=== PATIENT | male | born 1990 | race Caucasian/White ===

== ENCOUNTER 2025-03-17 15:02 | Emergency (ER) | payer BC, SELFPAY ==
[2025-03-17 15:03] VITALS: BP 137/92; PULSE 63; RESP 18; TEMP 37; O2SAT 100; BMI 21.6
--- NOTE | 2025-03-17 15:03 | ECG_ITS ---
APPROVED REPORT Exam: Resting ECG HR:68 bpm ECG Measurements Heart Rate 68 AXES NV 130 P 54 QRSd 93 QRS 79 QT 347 T 71 QTc 365 Conclusion Normal sinus rhythm Normal axis Normal intervals No STEMI Electronically signed by : Mehrdad Loo, 03/18/2025 01:45:15
[2025-03-17 15:10] VITALS: PULSE 63
--- NOTE | 2025-03-17 15:11 | XR_ITS ---
FINAL REPORT CLINICAL HISTORY: Chest pain, shortness of breath COMPARISON: None FINDINGS: CHEST 1 VIEW The heart size is normal. The mediastinum is normal. There is no focal infiltrate or edema. There are no pleural effusions. There is no pneumothorax. There is no osseous abnormality. There is a calcified granuloma in the right upper lobe. IMPRESSION: Calcified granuloma right upper lobe without acute cardiopulmonary process Reviewed, Interpreted and Dictated by Zhou Alatorre MD Transcribed by Fatoumata Sellers Authenticated and [facility]
[2025-03-17] MEDS: ACETAMINOPHEN 500MG TAB 1000 MG PO (15:20)
[2025-03-17 15:21] LABS: Hematocrit 40.0 % (42.0-52.0); Hemoglobin 13.0 g/dL (14.1-18.0); Immature Granulocytes % 0.4 %; Mean Corpuscular HGB Conc 32.5 g/dL (31.8-35.4); Mean Corpuscular Hemoglobin 28.8 pg (27.0-31.2); Mean Corpuscular Volume 88.5 fl (80-94); Nucleated Red Blood Cells % 0 %; Platelet Count 298 K/mm3 (142-424); Red Blood Count 4.52 M/mm3 (4.60-6.20); Red Cell Distribution Width-SD 41.1 fL; White Blood Count 8.5 K/mm3 (4.8-10.8)
[2025-03-17 15:27] LABS: Activated Partial Thrombo Time 26.7 seconds (22.8-30.6); Albumin Level 4.5 g/dl (3.5-5.0); Chloride 101 mmol/L (98-107); INR 0.98 (0.9-1.1); Prothrombin Time 10.9 seconds (10.1-12.5); Sodium 144 mmol/L (136-145)
[2025-03-17 15:28] LABS: Potassium 4.2 mmoL/L (3.5-5.1)
[2025-03-17 15:30] VITALS: BP 118/82; PULSE 58; RESP 10; O2SAT 97
[2025-03-17 15:30] LABS: Alanine Aminotransferase 17 U/L (12-78); Albumin/Globulin Ratio 1.6 (1.1-1.8); Alkaline Phosphatase 81 U/L (38-126); Anion Gap 16.2 mEq/L (5-15); Aspartate Amino Transferase 37 U/L (17-59); Bilirubin,Total 0.2 mg/dl (0.2-1.3); Blood Urea Nitrogen 11 mg/dl (9-20); Carbon Dioxide 31 mmol/L (22.0-30.0); Creatinine Clearance Estimated 93 mL/min (50-200); Creatinine,Serum 1.00 mg/dl (0.66-1.25); Estimated Glomerular Filt Rate 86 ml/min (>60); GFR (African American) 104 ML/MIN (>60); Globulin 2.9 g/dL (1.3-3.2); Total Protein,Serum 7.4 g/dl (6.3-8.2)
[2025-03-17 15:31] LABS: Calcium 9.4 mg/dl (8.4-10.2); Glucose 78 mg/dl (74-100)
--- NOTE | 2025-03-17 15:48 | ED_ITS ---
<Statement entered by Mehrdad Loo DO - 03/17/25 17:58> I was consulted by the MARI, and we discussed the complexity of problems being addressed. I approved the treatment and management plan for this patient's care in the emergency department, thus performing a substantive portion of the medical decision making. Discussed this case directly with MARI. Well score is low and PERC score 0. He did not state workup with D-dimer or CT PE study. Workup is overall reassuring and patient's pain seems highly consistent with musculoskeletal pain. He was discharged home on muscle laxer's. Mehrdad Loo DO Discharge Plan Disposition Patient Disposition: Home, Self-Care Prescriptions Prescriptions: New methocarbamol 500 mg tablet 500 mg PO BID Qty: 10 0RF Referrals Follow up/Referrals: Provider,Referral, MD [Primary Care Provider, Medical] - See instructions Activity Restrictions/Add. Instructions Additional Instructions/Restrictions: Today you were evaluated in the emergency department for chest pain. Your cardiac enzyme is negative. All of your other labs look well. Your chest x-ray does not show any acute findings. Please use the muscle relaxer, increase your fluid intake, rest and follow-up with your PCP. Please return to the ED for any worsening of condition peer Clinical Impressions Clinical Impression: Chest pain Stand Alone Forms Stand Alone Forms: Work/School Release Instructions Patient Instructions: DI for Chest Pain Print Language Print Language: Yi Discharge ED Provider: Mehrdad Loo <Karissa Franklin APRN - Last Filed: 03/17/25 16:18> General Chief Complaint: Chest Pain Stated Complaint: CP Time Seen by Provider: 03/17/25 15:04 Mode of Arrival: Ambulatory Source of Information: Patient Description of Symptoms (Recalled from ER Triage Doc. 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 pt states it is right sided in nature, tender and is worse with movement. Denies lifting anything heavy/strenous History of Present Illness HPI narrative: patient is a 34-year-old male with no significant PMHx who presents to the ED for complaints of right sided chest pain. Patient states the chest pain has been present for 3 days, it is worse when he is walking. He denies any history of chest pain, reports he does not have any family history of early or sudden cardiac . Denies any obvious injury or trauma to the area. 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 Related Data Previous Rx's ?Medication ?Instructions ?Recorded methocarbamol 500 mg tablet 500 mg PO BID #10 tabs Allergies Allergy/AdvReac Type Severity Reaction Status Date / Time No Known Allergies Allergy Verified 03/17/25 15:11 PFSH <Karissa Franklin APRN - Last Filed: 03/17/25 16:18> [facility] Disclaimer: The information contained in this section may have been updated after the patient was seen, as this information can be updated by other users. Social History (Updated 03/17/25 @ 16:18 by Karissa Franklin APRN) Smoking Status: Current every day smoker alcohol intake: never current occupational status: employed Travel in the last 8 weeks?: None Have you lived/traveled outside US in past 30 days?: No Contact w/someone who lives/traveled outside US past 30 days?: No Exposure to someone with infectious disease in past 14 days?: No Do you have a fever (greater than 100.4 F or 38 C)?: No Have you tested positive for COVID-19?: No Exposed to someone with COVID-19 in past 14 days?: No Do you have a sore throat?: No Do you have a cough?: No Do you have any weakness?: No Do you have any diarrhea?: No Are you experiencing any unusual bleeding?: No Do you have any muscle aches/pain?: Yes Do you have any abdominal pain?: No Are you experiencing loss of taste or smell?: No <Karissa Franklin APRN - Last Filed: 03/17/25 16:18> ROS Obtained: Yes Systems reviewed as appropriate & no additional complaints except as documented Physical Exam <Karissa Franklin APRN - Last Filed: 03/17/25 16:18> General General appearance: alert Head Head exam: atraumatic Eye Eye exam: Present PERRL Respiratory Respiratory exam: Present normal lung sounds bilaterally Cardiovascular Cardiovascular exam: Present regular rate and other (mild R sided chest wall tenderness upon palpation) Abdominal Exam Abdominal exam: Present soft; Absent tenderness Extremities Exam Extremities exam: Present full ROM Back Exam Back exam: Present full ROM Neurological Exam Neurological exam: Present alert and oriented X3 Skin Skin exam: Present warm and dry HEART Score <MARYELLEN Reardon Last Filed: 03/17/25 16:18> HEART Score HEART Score assessment performed?: Yes History (anamnesis): Slightly suspicious ECG: Normal Age: <45 years Risk factors: No known risk factors Troponin: </= normal limit HEART Score: 0 <Mehrdad Loo DO - Last Filed: 03/17/25 17:57> HEART Score HEART Score: 0 Critical Care <Karissa Franklin APRN - Last Filed: 03/17/25 16:18> Critical Care Time Critical Care Time: No Medical Decision Making <Karissa Franklin APRN - Last Filed: 03/17/25 16:18> [place] Inquiry Pt receiving controlled substance: No Vital Signs Vital Signs: 03/17/25 15:03 03/17/25 15:10 03/17/25 15:30 Temperature 98.6 F Temperature Source Oral Pulse Rate 63 58 L Pulse Rate [Right] 63 Respiratory Rate 18 10 L Blood Pressure 118/82 Blood Pressure [Right Arm] 137/92 H Blood Pressure Mean [Right Arm] 107 Blood Pressure Source [Right Arm] Automatic Cuff Blood Pressure Position [Right Arm] Sitting 02 Sat by Pulse Oximetry 100 97 Oxygen Delivery Method Room Air Room Air 03/17/25 16:00 03/17/25 16:29 Temperature 98.6 F Temperature Source Pulse Rate 55 L 59 L Pulse Rate [Right] Respiratory Rate 10 L 12 Blood Pressure 114/72 114/72 Blood Pressure [Right Arm] Blood Pressure Mean [Right Arm] Blood Pressure Source [Right Arm] Blood Pressure Position [Right Arm] 02 Sat by Pulse Oximetry 98 Oxygen Delivery Method Lab Data Labs: Lab Results 03/17/25 15:08: WBC 8.5, RBC 4.52 L, Hgb 13.0 L, Hct 40.0 L, MCV 88.5, MCH 28.8, MCHC 32.5, RDW 12.6, Plt Count 298, MPV 10.5 H, Neut % (Auto) 77.8, Lymph % (Auto) 14.3, Tompkins % (Auto) 6.5, Eos % (Auto) 0.5, Baso % (Auto) 0.5, Neut # (Auto) 6.6, Lymph # (Auto) 1.2, Tompkins # (Auto) 0.6, Eos # (Auto) 0.0, Baso # (Auto) 0.0, PT 10.9, INR 0.98, APTT 26.7, Sodium 144, Potassium 4.2, Chloride 101, Carbon Dioxide 31 H, Anion Gap 16.2 H, BUN 11, Creatinine 1.00, Estimated Creat Clear 93, Estimated GFR 86, Est GFR ( Amer) 104, Glucose 78, Calcium 9.4, Total Bilirubin 0.2, AST 37, ALT 17, Alkaline Phosphatase 81, Troponin I < 0.01, Total Protein 7.4, Albumin 4.5, Globulin 2.9, Albumin/Globulin Ratio 1.6 03/17/25 15:51: Urine Color Yellow, Urine Appearance Clear, Urine pH 6.0, Ur Specific Montezuma 1.025, Urine Protein Negative, Urine Glucose (UA) Negative, Urine Ketones Negative, Urine Blood Negative, Urine Nitrate Negative, Urine Bilirubin Negative, Urine Urobilinogen 0.2, Ur Leukocyte Esterase Negative, Urine RBC Occasional, Urine WBC Occasional, Ur Squamous Epith Cells 3-5, Urine Bacteria 2+, Urine Opiates Screen Negative, Urine Methadone Screen Negative, Ur Barbituates Screen Negative, Ur Phencyclidine Scrn Negative, Ur Amphetamines Screen Negative, U Benzodiazepines Scrn Negative, Urine Cocaine Screen Negative, U Marijuana (THC) Screen Positive H 03/17/25 15:08 03/17/25 15:08 Response Orders (Tests/Meds): ED MEDICATIONS Discontinued Medications Generic Name Dose Route Start Last Admin Trade Name Freq PRN Reason Stop Dose Admin Acetaminophen 1,000 mg 03/17/25 15:12 03/17/25 15:20 Acetaminophen 500mg Tab PO 03/17/25 15:13 1,000 mg ONCE ONE Administration ORDERS Category Date Time Status CXR --portable [XR chest portable] Stat Exams 03/17/25 15:11 Completed CBC w/Auto Diff [Complete Blood Count Auto Diff] Stat Lab 03/17/25 15:08 Completed CMP [Comprehensive Metabolic Panel] Stat Lab 03/17/25 15:08 Completed PT/PTT Stat Lab 03/17/25 15:08 Completed Trop I [Troponin I] Stat Lab 03/17/25 15:08 Completed UDS [Drug Screen,Urine] Stat Lab 03/17/25 15:51 Completed Urinalysis and Microscopic Stat Lab 03/17/25 15:51 Completed Urine Culture Stat Micro 03/17/25 15:51 Received [facility] Narrative Medical Decision Narrative: In summary, patient is a 34-year-old male with no significant PMHx who presents to the ED for complaints of right sided chest pain. Patient states the chest pain has been present for 3 days, it is worse when he is walking. He denies any history of chest pain, reports he does not have any family history of early or sudden cardiac . Denies any obvious injury or trauma to the area. 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 Denies any history of pulmonary embolism. Upon initial evaluation he is alert, oriented and cooperative. He is hemodynamically stable. He has mild right chest wall tenderness upon palpation. Denies fever, chills, headache, visual disturbances, neck pain, shortness of breath, abdominal pain, nausea, vomiting, dysuria. Differential diagnoses include ACS, pulmonary embolism, dissection, pneumonia, pneumothorax, infectious process, among others. Shared decision making used, advised patient we will obtain labs, EKG and chest x-ray for further evaluation. He states he does not want any pain medication due to previous history of abuse, we decided that we will administer acetaminophen and reevaluate. CBC unremarkable for any leukocytosis, stable H&H. PT, INR, APTT normal. CMP unremarkable for any actionable abnormalities. First troponin < 0.01. Attending reviewed chest x-ray, reports no acute findings. Upon reassessment, patient states that his pain has improved. He states that he may have injured himself at work at [employer] because he remembers telling his work partner this past Thursday that his chest was hurting. I discussed with patient he may benefit from a mild muscle relaxer, he is agreeable to try this. He states he does have a PCP that he can follow-up with. Advised him to rest, increase fluid intake, he may also take acetaminophen as needed. We discussed return precautions to the ED and patient verbalized understanding <Mehrdad Loo DO - Last Filed: 03/17/25 17:57> Medical Records Medical records reviewed: Yes I reviewed the patient's medical records. Vital Signs Vital Signs: 03/17/25 15:03 03/17/25 15:10 03/17/25 15:30 Temperature 98.6 F Temperature Source Oral Pulse Rate 63 58 L Pulse Rate [Right] 63 Respiratory Rate 18 10 L Blood Pressure 118/82 Blood Pressure [Right Arm] 137/92 H Blood Pressure Mean [Right Arm] 107 Blood Pressure Source [Right Arm] Automatic Cuff Blood Pressure Position [Right Arm] Sitting 02 Sat by Pulse Oximetry 100 97 Oxygen Delivery Method Room Air Room Air 03/17/25 16:00 03/17/25 16:29 Temperature 98.6 F Temperature Source Pulse Rate 55 L 59 L Pulse Rate [Right] Respiratory Rate 10 L 12 Blood Pressure 114/72 114/72 Blood Pressure [Right Arm] Blood Pressure Mean [Right Arm] Blood Pressure Source [Right Arm] Blood Pressure Position [Right Arm] 02 Sat by Pulse Oximetry 98 Oxygen Delivery Method Lab Data Labs: Lab Results 03/17/25 15:08: WBC 8.5, RBC 4.52 L, Hgb 13.0 L, Hct 40.0 L, MCV 88.5, MCH 28.8, MCHC 32.5, RDW 12.6, Plt Count 298, MPV 10.5 H, Neut % (Auto) 77.8, Lymph % (Auto) 14.3, Tompkins % (Auto) 6.5, Eos % (Auto) 0.5, Baso % (Auto) 0.5, Neut # (Auto) 6.6, Lymph # (Auto) 1.2, Tompkins # (Auto) 0.6, Eos # (Auto) 0.0, Baso # (Auto) 0.0, PT 10.9, INR 0.98, APTT 26.7, Sodium 144, Potassium 4.2, Chloride 101, Carbon Dioxide 31 H, Anion Gap 16.2 H, BUN 11, Creatinine 1.00, Estimated Creat Clear 93, Estimated GFR 86, Est GFR ( Amer) 104, Glucose 78, Calcium 9.4, Total Bilirubin 0.2, AST 37, ALT 17, Alkaline Phosphatase 81, Troponin I < 0.01, Total Protein 7.4, Albumin 4.5, Globulin 2.9, Albumin/Globulin Ratio 1.6 03/17/25 15:51: Urine Color Yellow, Urine Appearance Clear, Urine pH 6.0, Ur Specific [place] 1.025, Urine Protein Negative, Urine Glucose (UA) Negative, Urine Ketones Negative, Urine Blood Negative, Urine Nitrate Negative, Urine Bilirubin Negative, Urine Urobilinogen 0.2, Ur Leukocyte Esterase Negative, Urine RBC Occasional, Urine WBC Occasional, Ur Squamous Epith Cells 3-5, Urine Bacteria 2+, Urine Opiates Screen Negative, Urine Methadone Screen Negative, Ur Barbituates Screen Negative, Ur Phencyclidine Scrn Negative, Ur Amphetamines Screen Negative, U Benzodiazepines Scrn Negative, Urine Cocaine Screen Negative, U Marijuana (THC) Screen Positive H Response Orders (Tests/Meds): ED MEDICATIONS Discontinued Medications Generic Name Dose Route Start Last Admin Trade Name Deanna PRN Reason Stop Dose Admin Acetaminophen 1,000 mg 03/17/25 15:12 03/17/25 15:20 Acetaminophen 500mg Tab PO 03/17/25 15:13 1,000 mg ONCE ONE Administration ORDERS Category Date Time Status CXR --portable [XR chest portable] Stat Exams 03/17/25 15:11 Completed CBC w/Auto Diff [Complete Blood Count Auto Diff] Stat Lab 03/17/25 15:08 Completed CMP [Comprehensive Metabolic Panel] Stat Lab 03/17/25 15:08 Completed PT/PTT Stat Lab 03/17/25 15:08 Completed Trop I [Troponin I] Stat Lab 03/17/25 15:08 Completed UDS [Drug Screen,Urine] Stat Lab 03/17/25 15:51 Completed Urinalysis and Microscopic Stat Lab 03/17/25 15:51 Completed Urine Culture Stat Micro 03/17/25 15:51 Received ECG Data Tracing #1: Attestation: I reviewed this ECG and interpreted as documented below: ECG Narrative: EKG personally turbid by me demonstrates normal sinus rhythm with a rate of 68 bpm, normal axis, no MD prolongation, narrow QRS, no QTc punctation. No ST elevation or depression. No overt signs of ischemia or arrhythmia
[2025-03-17 15:53] LABS: Troponin I < 0.01 ng/ml (0.00-0.034)
--- OUTSIDE RECORDS SUMMARY | 2025-03-17 15:55 | XMS_ITS | Referral Summary ---
Author Organization [employer] ([place], [place], [place], [place], [place]) Address [address] [place] [address] Care Team Providers Care Medical Doctor Md Name Role Phone Unavailable Primary Care Provider Unavailabl e Social History Tobacco Use Types Packs/Day Years Used Date Smoking Tobacco: Never Assessed Sex and Gender Information Value Date Recorded Sex Assigned at Not on file Legal Sex Male 10:45 AM CDT Gender Identity Not on file Sexual Orientation Not on file Plan of Treatment Not on file Insurance BLUE CROSS/BLUE SHIELD
--- OUTSIDE RECORDS SUMMARY | 2025-03-17 15:55 | XMS_ITS | Encounter Summary ---
Author Organization Healthcare Address 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, left eye (Primary Dx) Social History Tobacco Use Types Packs/Day Years Used Date Smoking Tobacco: Never Assessed Sex and Gender Information Value Date Recorded Sex Assigned at Male 04/13/2023 1:24 PM EST Legal Sex Male 9:56 AM EDT Gender Identity Male 04/13/2023 1:24 PM EST Sexual Orientation Straight 04/13/2023 1: 24 PM EST documented as of this encounter Plan of Treatment Upcoming Encounters Date Type Department Care Team (Late st Contact Info) Description 03/21/2025 3:00 PM EST Office Visit [facility] [address] [place] [address] Clarisse Ritchie MD [address] [facility] [address] [place] [address] 05/16/2025 3:30 PM EST Office Visit [facility] - Pediatrics [address] [place] [address] Dudley Dumas MD [address] [facility] [address] [place] [address] Scheduled Referrals Name Type Priority Associated Diagnoses Order Schedule Ambulatory Referral to Ophthalmology Outpatient Referral Routine 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
--- OUTSIDE RECORDS SUMMARY | 2025-03-17 15:55 | XMS_ITS | Clinical Summary ---
Author Organization Healthcare Address [address] [place] [address] Care Team Providers Care At Risk Specialist Name Role Phone Pcp, No Primary Care Provider Unavailabl e Allergies No known active allergies Medications Buprenorphine HCl-Naloxone HCl (Suboxone) 8-2 MG SL film 03/03/20 23 Active brimonidine-april lol (Combigan) 0.2-0.5 % ophthalmic solution Administer 1 drop into the left eye 2 (two) times a day. 5 mL 6 03/17/20 23 Active Additional Information Patient not taking.Reported on 09/20/2024 brimonidine-april lol (Combigan) 0.2-0.5 % ophthalmic solution Administer 1 drop into the left eye 2 (two) times a day. 5 mL 6 03/17/20 23 Active Additional Information Patient not taking.Reported on 09/20/2024 cyclopentolate (Cyclogyl) 1 % ophthalmic solution Administer 1 drop into the left eye 2 (two) times a day. 2 mL 06/13/19 24 Active Additional Information Patient not taking.Reported on 09/20/2024 acetaZOLAMIDE (Diamox) 500 MG 12 hr capsule Take 1 capsule (500 mg) by mouth 2 (two) times a day. 30 capsule 1 06/13/19 24 Active prednisoLONE acetate (Pred-Forte) 1 % ophthalmic suspension Administer 1 drop into the left eye 1 (one) time each day if needed (eye irritation and light sensitivity). 5 mL 5 08/13/19 24 Active Additional Information Patient not taking.Reported on 09/20/2024 Sublocade 100 MG/0.5ML solution prefilled syringe subcutaneous injection INJECT 100MG SUBCUTANEOUSLY ONCE MONTHLY 09/03/19 25 Active buPROPion XL (Wellbutrin XL) 150 MG 24 hr tablet take 1 tablet by mouth every morning for 90 days 06/13/19 25 Active escitalopram (Lexapro) 10 MG tablet take 1 tablet by mouth every day for 90 days 06/13/19 25 Active lamoTRIgine (LaMICtal) 25 MG tablet Take 2 tablets by mouth daily. 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 Resolved Problems Problem Noted Date Diagnosed Date Resolved Date Silicone oil in eye after vitrectomy 06/11/2023 01/15/2025 Social History Tobacco Use Types Packs/Day Years Used Date Smoking Tobacco: Former Cigarettes 1 16 0 04/27/2004 - 04/27/2020 Passive Smoke Exposure: Past Smokeless Tobacco: Never Tobacco Cessation:Counseling Given: No Alcohol Use Standard Drinks/Week Comments Not Currently 0 (1 standard drink = 0.6 oz pur e alcohol) Sex and Gender Information Value Date Recorded Sex Assigned at Male 04/13/2023 1:24 PM EST Legal Sex Male 9:56 AM EDT Gender Identity Male 04/13/2023 1:24 PM EST Sexual Orientation Straight 04/13/2023 1: 24 PM EST Last Filed Vital Signs Vital Sign Reading Time Taken Comments Blood Pressure 123/62 06/13/2023 9:19 PM EST Pulse 57 06/13/2023 9:19 PM EST Temperature 37.2 C (98.9 F) 06/13/2023 9:19 PM EST Respiratory Rate 14 06/13/2023 9:19 PM EST Oxygen Saturation 96% 06/13/2023 9:19 PM EST Inhaled Oxygen Concentration - - Weight 64 kg (141 lb 1.5 oz) 06/13/2023 1:31 PM EST Height 170.2 cm (5' 7 ) 06/04/2023 9:43 AM EST Body Mass Index 22.1 06/04/2023 9:43 AM EST Plan of Treatment Upcoming Encounters Date Type Department Care Team (Late st Contact Info) Description 03/21/2025 3:00 PM EST Office Visit [facility] [address] [place] [address] Clarisse Ritchie MD [address] [facility] [address] [place] [address] 05/16/2025 3:30 PM EST Office Visit [facility] - Pediatrics [address] [place] [address] Dudley Dumas MD [address] [facility] [address] [place] [address] Health Maintenance Due Date Last Done Comments [facility]-Depression Screening 1991 [facility]-HIV Screening 1991 [facility]-Hepatitis C Screening 1991 [facility]-Infant/Child/Adol SDOH Screenings 1991 [facility]-IPV Vaccines (2 of 3 - 4-dose series) 01/06/1996 12/09/1995 [facility]-DTaP,Tdap,and Td Vaccines (3 - Tdap) 04/06/2003 04/05/2003, 12/09/1995 [facility]-Varicella Vaccines (1 of 2 - 13+ 2-dose series) 12/04/2004 [facility]- SDOH Screenings 12/04/2009 [facility]-Adult SDOH Screenings 12/04/2009 HPV Vaccines (1 - 3-dose SCDM series) 12/04/2018 ROM-ADJRK-90 Vaccine (2 - season) 2024 01/22/2021 [facility]-Influenza Vaccine (#1) 2024 01/27/2023 [facility]-Zoster Vaccines (1 of 2) 12/04/2041 [facility]-Hepatitis B Vaccines Completed 005, 12/21/2002, 09/14/2002 [facility]-HIB Vaccines Aged Out No longer e ligible based on patient's age to complete this topic [facility]-Hepatitis A Vaccines Aged Out No longer eligible based on patient's age to complete this topic [facility]-Pneumococcal Vaccine: Pediatrics (0 to 5 Years) and At-Risk Patients (6 to 49 Years) Aged Out No longer eligible b ased on patient's age to complete this topic [facility]-Rotavirus Vaccines Aged Out No lo nger eligible based on patient's age to complete this topic Medical Devices Implanted Type Area User Support Specialist Device Identifier Shelf Expiration Date Model / Serial / Lot Oil Silicone 1000 - [id number] Implanted:Qty : 1 on 06/04/2023 by Velma Milton MD at [facility] Eye Implant Left: Eye [employer]-[id number] 02/24/2026 [id number] / / [id number] Lens Mta4uo 24 - [id number] Implanted:Qty : 1 on 06/04/2023 by Velma Milton MD at [facility] Left: Eye [employer]-[id number] 10/01/2024 [id number] / [id number] / [id number] Insurance [employer] Care Teams At Risk Specialist Relationship Specialty Start Date End Date Pcp No [address] [place] [address] PCP - General Family Medicine 04/14/23
--- OUTSIDE RECORDS SUMMARY | 2025-03-17 15:55 | XMS_ITS | Encounter Summary ---
Author Organization Healthcare Address [address] [place] [address] Care Team Providers Care Yard Loader Operator Name Role Phone Pcp, No Primary Care Provider Unavailabl e Encounter Details Date Type Department Care Team (Late st Contact Info) Description 06/13/2023 Ophth Exam [facility] [address] [place] [address] Bj Diaz MD [address] [address] Social History Tobacco Use Types Packs/Day Years Used Date Smoking Tobacco: Former Cigarettes 1 16 2 005 - 2020 Smokeless Tobacco: Never Alcohol Use Standard Drinks/Week Comments Not Currently 0 (1 standard drink = 0.6 oz pur e alcohol) Sex and Gender Information Value Date Recorded Sex Assigned at Male 04/13/2023 1:24 PM EST Legal Sex Male 9:56 AM EDT Gender Identity Male 04/13/2023 1:24 PM EST Sexual Orientation Straight 04/13/2023 1: 24 PM EST documented as of this encounter Functional Status * Calculated C-SSRS Risk Score (Lifetime/Recent) Answer Date of Assessment Author No Risk Indicated 06/13/2023 1:34 PM EST Renee Whittington RN * Question Answer Date of Assessment Author 1. Wish to be (Past 1 Month) No 024 1:34 PM Renee Calvo RN 2. Non-Specific Active Suici charles Thoughts (Past 1 Month) No 06/13/2023 1:34 PM Sajan Calvo RN 6. Suicidal Behavior (Lifetime) No 4 1:34 PM EST Renee Whittington RN documented as of this encounter Plan of Treatment Upcoming Encounters Date Type Department Care Team (Late st Contact Info) Description 03/21/2025 3:00 PM EST Office Visit [facility] [address] [place] [address] Clarisse Ritchie MD 110 [facility] [address] [place] [address] 05/16/2025 3:30 PM EST Office Visit [facility] - Pediatric[facility] [address] [place] [address] Dudley Dumas MD 110 [facility] [address] [place] [address] documented as of this encounter Visit Diagnoses Not on filedocumented in this encounter Additional Health Concerns Assessment Noted Time A fall risk assessment has been complete d for the patient 04/14/2023 1:37 PM EST A Body Mass Index follow-up plan has been documented for the patient 03/17/2023 3:29 PM EST documented as of this encounter Care Teams Yard Loader Operator Relationship Specialty Start Date End Date Pcp, No [address] [place] [address] PCP - General Family Medicine 04/14/23 documented as of this encounter
--- OUTSIDE RECORDS SUMMARY | 2025-03-17 15:55 | XMS_ITS | Clinical Summary ---
Author Organization [employer] ([place], [place], [place], [place], [place]) Address [address] [place] [address] Care Team Providers Care Legal Services Manager Name Role Phone Unavailable Primary Care Provider Unavailabl e Social History Tobacco Use Types Packs/Day Years Used Date Smoking Tobacco: Never Assessed Sex and Gender Information Value Date Recorded Sex Assigned at Not on file Legal Sex Male 10:45 AM CDT Gender Identity Not on file Sexual Orientation Not on file Plan of Treatment Health Maintenance Due Date Last Done Comments Depression Screening (12+) 2003 Tobacco Cessation Counseling and Screening (12+) 2003 HIV Screening 12/04/2006 Hepatitis C Screening 12/04/2009 DTAP/TDAP/TD VACCINES (3 - T d or Tdap) 04/05/2013 04/05/2003, 12/09/1995 COVID-19 VACCINE (2024-2 6 season) 2024 01/22/2021 Influenza Vaccine (#1) 2024 Pneumococcal Vaccine: 0-49 Years Aged Out No longer eligible b ased on patient's age to complete this topic Insurance BLUE CROSS/BLUE SHIELD
[2025-03-17 16:00] VITALS: BP 114/72; PULSE 55; RESP 10; O2SAT 98
[2025-03-17 16:05] LABS: Microscopic, Urine URINE MICROSCOPIC (MICROSCOPIC)
[2025-03-17 16:09] LABS: Bilirubin,Urine Negative (Negative); Color,Urine YELLOW (Yellow); Glucose,Urine (UA) Negative (Negative); Ketones,Urine Negative (Negative); Leukocyte Esterase,Urine Negative (Negative); PH,Urine 6.0 (5.0-8.5); Protein,Urine Negative (Negative); Specific Gravity, Urine 1.025 (1.005-1.030); Urobilinogen,Urine 0.2 EU/dl (0.2)
[2025-03-17 16:22] LABS: Barbiturates Screen,Urine Negative ng/ml (<200)
[2025-03-17 16:23] LABS: Amphetamine/Metha Screen,Urine Negative ng/ml (<1000); Benzodiazepines Screen,Urine Negative ng/ml (<200)
[2025-03-17 16:25] LABS: Methadone Screen,Urine Negative ng/ml (<300)
[2025-03-17 16:26] LABS: Opiate Screen,Urine Negative ng/ml (<300)
[2025-03-17 16:27] LABS: Phencyclidine Screen,Urine Negative ng/ml (<25)
[2025-03-17 16:29] VITALS: BP 114/72; PULSE 59; RESP 12; TEMP 37; O2SAT 99
[2025-03-17 16:45] LABS: Bacteria,Urine 2+ /lpf; RBC,Urine Occasional #/hpf (0-3); WBC,Urine Occasional #/hpf (0-3)
== END 2025-03-17 16:29 | disposition home or self-care (01) ==
PROVIDERS: Nurse Practitioner; Emergency Provider Student in an Organized Health Care Education/Training Program
DX: R07.9 Chest pain, unspecified (principal); F17.210 Nicotine dependence, cigarettes, uncomplicated
CPT/HCPCS: 71045; 80053; 80307; 81001; 84484; 85025; 85610; 85730; 87086; 93005; 99285